=== PATIENT | male | born 1970 | race Caucasian/White ===

== ENCOUNTER 2021-06-21 10:03 | Emergency (ER) | payer OTHER ==
[2021-06-21 10:24] VITALS: BP 153/87; PULSE 84; TEMP 98.5; BMI 29.7
[2021-06-21 12:12] LABS: BASO % 0.3 % (0-2.0); EOS % 1.2 % (0-4.5); HEMATOCRIT 43.3 % (35.4-49); HEMOGLOBIN 14.5 GM/dL (11.7-16.9); LYMPH % 16.2 % (8-40); MCH 29.4 pg (25.7-33.7); MCHC 33.5 g/dl (32.0-35.9); MEAN CELL VOLUME 87.6 fl (80-96); MEAN PLT VOLUME 7.6 fl (7.5-11.1); MONO % 6.2 % (3.8-10.2); NEUT % 76.1 % (42.8-82.8); PLATELET COUNT 224 10^3/uL (134-434); RBC 4.95 M/mm3 (4.00-5.60); RDW 13.5 % (11.9-15.9); WHITE BLOOD COUNT 6.9 K/mm3 (4.0-10.0)
[2021-06-21 12:36] LABS: CALCIUM 8.9 mg/dL (8.5-10.1)
[2021-06-21 12:37] LABS: ALBUMIN 3.8 g/dl (3.4-5.0); BLOOD UREA NITROGEN 17.4 mg/dL (7-18)
[2021-06-21 12:40] LABS: CREATININE 0.9 mg/dL (0.55-1.3)
[2021-06-21 12:41] LABS: BILIRUBIN,TOTAL 0.6 mg/dL (0.2-1); TOT PROT 7.2 g/dl (6.4-8.2)
== END 2021-06-21 14:11 | disposition home or self-care (01) ==
LOC: JER 10:03
DX: L03.221 Cellulitis of neck (principal)
CPT/HCPCS: 36415; 70491-TC; 80053; 84439; 84443; 84481; 85025; 99285-25; Q9967